=== PATIENT | female | born 1945 | race Caucasian/White ===

== ENCOUNTER 2018-05-25 10:17 | Inpatient (IN) | payer MEDICARE, OTHER ==
[~2018-05-25] VITALS: Ht 157.5 cm; Wt 63.5 kg
[~2018-05-25 10:17] MED LIST: MULT-298 PO; TRAM50TA1 PO
--- NOTE | 2018-05-25 10:18 | NUR ---
PT [facility] BLS TO ER BED 06
[2018-05-25 10:19] VITALS: BP 148/89
--- NOTE | 2018-05-25 10:36 | NUR ---
PATIENT PRESENTS TO ED WITH the chief c/o LEFT ankle pain. PT STATES SHE HAD FALL LAST WEDNESDAY AND PAIN AND SWOLLEN LEFT LEG STARTED SINCE THEN . DENIES N/V/D; SKIN IS PINK/WARM/DRY; AAOX4 WITH EVEN AND STEADY GAIT; LUNGS CLEAR BL; HR EVEN AND REGULAR; PT DENIES ANY FEVER, CP, SOB, OR COUGH AT THIS TIME; PATIENT STATES PAIN OF 9/10 AT THIS TIME; VSS; PATIENT POSITIONED FOR COMFORT; HOB ELEVATED; BEDRAILS UP X2; BED DOWN. ER MD MADE AWARE OF PT STATUS.
--- NOTE | 2018-05-25 11:02 | NUR ---
X -RAY AT BEDSIDE.
[2018-05-25] MEDS ORDERED: oxyCODONE/APAP 5/325 MG 1 TAB TAB PO ONE (11:35)
[2018-05-25] MEDS ORDERED: MORPHINE SULFATE 2 MG/ML SYR IVP PRN (15:25)
[2018-05-25] MEDS ORDERED: HYDROcodone/APAP 5/325 MG 1 TAB TAB PO PRN (15:25)
[2018-05-25] MEDS ORDERED: ONDANSETRON 4 MG/2 ML VIAL IM/IVP PRN (15:25)
[2018-05-25] MEDS ORDERED: ACETAMINOPHEN 325 MG TAB PO PRN (15:25)
[2018-05-25] MEDS ORDERED: LORazepam 2 MG/ML VIAL IM/IVP PRN (15:25)
[2018-05-25] MEDS ORDERED: DOCUSATE SODIUM 100 MG GELCAP PO PRN (15:25)
--- NOTE | 2018-05-25 15:41 | NUR ---
PT DIDNOT VOID SINCE SHE CAME IN. DENIES BLADDER DISCOMFORT. UNABLE TO COLECT UA SAMPLE. PT REFUSED STRAIGHT CATH. DR. MEANS MADE AWARE. SAID ITS OK TO COLECT URINE ON THE FLOOR. DR. MEANS AT BEDSIDE EVALUATING PT. .
--- NOTE | 2018-05-25 16:15 | NUR ---
LABS AT BEDSIDE.
[2018-05-25 16:49] LABS: BASOPHILS # (AUTO) 0.1 K/uL (0.00-0.22); BASOPHILS % (AUTO) 0.9 % (0.0-2.0); EOSINOPHILS # (AUTO) 0.1 K/uL (0-0.4); EOSINOPHILS % (AUTO) 1.2 % (0.0-4.0); HEMATOCRIT 43.9 % (36-48); HEMOGLOBIN 14.6 g/dL (12.0-16.0); LYMPHOCYTES # (AUTO) 2.1 K/uL (2.5-16.5); LYMPHOCYTES % (AUTO) 27.1 % (20.5-51.1); MEAN CORPUSCULAR HEMOGLOBIN 31 pg (27-31); MEAN CORPUSCULAR HGB CONC 33 g/dL (33-37); MEAN CORPUSCULAR VOLUME 91.9 fL (80-94); MONOCYTES # (AUTO) 0.6 K/uL (0.8-1.0); MONOCYTES % (AUTO) 7.3 % (1.7-9.3); NEUTROPHILS # (AUTO) 4.8 K/uL (1.8-7.7); NEUTROPHILS % (AUTO) 63.5 % (42.2-75.2); PLATELET COUNT (AUTO) 190 K/uL (140-450); RED BLOOD CELL COUNT(AUTO) 4.78 MIL/uL (4.20-5.40); RED CELL DISTRIBUTION WIDTH 13.7 % (11.6-13.7); WHITE BLOOD COUNT (AUTO) 7.6 K/uL (4.8-10.8)
[2018-05-25 17:12] LABS: ALBUMIN 3.5 g/dL (3.4-5.0); ANION GAP 7.6 (8-16); ASPARTATE AMINOTRANSFERASE 44 U/L (15-37); CARBON DIOXIDE 27.7 mmol/L (21-32); CHLORIDE 108 mmol/L (98-107); CREATININE 0.7 mg/dL (0.6-1.3); GLUCOSE 113 mg/dL (74-106); POTASSIUM 4.3 mmol/L (3.5-5.1); SODIUM SERUM 139 mmol/L (136-145); TOTAL BILIRUBIN 0.8 mg/dL (0.0-1.0); UREA NITROGEN, BLOOD 18 mg/dL (7-18)
[2018-05-25 17:18] LABS: PROTHROMBIN TIME 10.6 secs (10.8-13.4)
[2018-05-25 17:19] LABS: MAGNESIUM 2.5 mg/dL (1.8-2.4); PHOSPHORUS 3.5 mg/dL (2.5-4.9); THYROID STIMULATING HORMONE 2.06 uIU/mL (0.34-3.74)
[2018-05-25 17:25] VITALS: BP 143/61
--- NOTE | 2018-05-25 17:25 | NUR ---
PATIENT ARRIVED ON MST UNIT FROM ER, SAFELY TRANSFERRED FROM ER BED TO MST BED. NO DISTRESS NOTED. PAIN WITHIN TOLERABLE AT THIS TIME. AAOX3, CALM, COOPERATIVE, SKIN COLOR APPROPRIATE TO ETHNICITY. HAS B/L KNEES ABRASION S/P FALL THAT IS GEOPHYSICAL COMPUTER. B/L FOOT BRUISING NOTED ALSO S/P FALL. B/L ANKLES AND FOOTS +1 PITTING EDEMA. LUNGS CTA ON ALL LOBES. ABDOMEN SOFT NON-DISTENDED. IV SITE INTACT, PATENT, AND INFUSING IVF PER MD ORDERS. ORIENTED PATIENT TO ROOM AND CALL LIGHT. REVIEWED PLAN OF CARE WITH PATIENT. PATIENT VERBALIZED UNDERSTANDING. SAFETY MEASURES IN PLACE, CALL LIGHT WITHIN REACH. WILL CONTINUE TO MONITOR.
--- NOTE | 2018-05-25 17:27 | NUR ---
Patient admitted to [facility] under the care of Dr. Rodríguez. [facility] Belongings list completed. Report to given to BARRY Estrella.
[2018-05-25] MEDS: NACL 0.9% 1,000 ML IV SCH (17:53)
--- NOTE | 2018-05-25 18:45 | NUR ---
US TECH AT BEDSIDE. WILL CONTINUE TO MONITOR.
--- NOTE | 2018-05-25 19:32 | NUR ---
GAVE REPORT TO TRANSFER SPECIALIST NURSE FOR CONTINUITY OF CARE. PATIENT IN STABLE CONDITION.
--- NOTE | 2018-05-25 19:33 | NUR ---
REPORT RECEIVED FROM AM NURSE AT BEDSIDE. PT IN STABLE CONDITION. AAOX4. INTRODUCED SELF. BOARD UPDATED. IV SITE LEFT WRIST 22G RUNNING BS@60ML/HR PATENT AND INTACT. SKIN WARM, DRY, AND NOT INTACT DUE TO BILATERAL ABRASIONS ON THE KNEES AND BILATERAL BRUISING OF LOWER EXTREMITIES. EDEMA ALSO NOTED ON BLE. BED LOCKED IN LOW POSITION. CALL MCCLAIN WITHIN REACH. SAFETY MEASURES IN PLACE.
[2018-05-25 20:20] LABS: BILIRUBIN,URINE NEGATIVE (NEGATIVE); BLOOD, URINE NEGATIVE (NEGATIVE); LEUKOCYTE ESTERASE ,URINE 2+ (NEGATIVE); NITRITE, URINE NEGATIVE (NEGATIVE); PH,URINE 5.5 (5.0-9.0); UGLUCOSE NEGATIVE (NEGATIVE)
[2018-05-25 20:32] LABS: APPEARANCE,URINE CLOUDY (CLEAR); COLOR,URINE AMBER (YELLOW)
[2018-05-25 20:40] LABS: RBC,URINE NONE SEEN /HPF (0-5); WBC,URINE 20-60 /HPF (0-5)
[2018-05-25] MEDS ORDERED: cefTRIAXone 1,000 MG VIAL ONE (23:09)
--- NOTE | 2018-05-25 23:13 | NUR ---
NEW ORDER FOR ROCEPHIN 1G IVPB. HUNG AND RUNNING. PT TOLERATING WELL.
[2018-05-26] VITALS: BP 130/53
--- NOTE | 2018-05-26 01:00 | NUR ---
PT SLEEPING COMFORTABLY. NO S/S OF DISTRESS NOTED. WILL CONTINUE TO MONITOR.
[2018-05-26] MEDS ORDERED: INFLUENZA VIRUS VACCINE QUAD 0.5 ML SYR IMVAC SCH (02:05)
--- NOTE | 2018-05-26 04:30 | NUR ---
PT SLEEPING COMFORTABLY. NO S/S OF DISTRESS NOTED. CHEST EXPANSION VISIBLE. BREATHING WNL, EVEN, AND UNLABORED.
[2018-05-26 06:48] LABS: BASOPHILS % (AUTO) 0.8 % (0.0-2.0); EOSINOPHILS # (AUTO) 0.2 K/uL (0-0.4); EOSINOPHILS % (AUTO) 2.5 % (0.0-4.0); HEMOGLOBIN 13.6 g/dL (12.0-16.0); LYMPHOCYTES # (AUTO) 1.9 K/uL (2.5-16.5); LYMPHOCYTES % (AUTO) 32.9 % (20.5-51.1); MEAN CORPUSCULAR HEMOGLOBIN 30 pg (27-31); MEAN CORPUSCULAR HGB CONC 33 g/dL (33-37); MEAN CORPUSCULAR VOLUME 91.5 fL (80-94); MONOCYTES # (AUTO) 0.4 K/uL (0.8-1.0); MONOCYTES % (AUTO) 6.9 % (1.7-9.3); NEUTROPHILS # (AUTO) 3.4 K/uL (1.8-7.7); NEUTROPHILS % (AUTO) 56.9 % (42.2-75.2); PLATELET COUNT (AUTO) 182 K/uL (140-450); RED BLOOD CELL COUNT(AUTO) 4.48 MIL/uL (4.20-5.40); RED CELL DISTRIBUTION WIDTH 13.3 % (11.6-13.7); WHITE BLOOD COUNT (AUTO) 5.9 K/uL (4.8-10.8)
--- NOTE | 2018-05-26 07:00 | NUR ---
RECEIVED PT REPORT AT BEDSIDE FROM SEMICONDUCTOR BONDER NURSE. PT IS ALERT AND AWAKE, NO S/S OF DISTRESS NOTED AT THIS TIME. IV SITE NOTED ON L WRIST, 22 GAUGE, INFUSING NS AT 60 ML/HR. SLIGHT SWELLING NOTED ON L FOOT. PT IS ON ROOM AIR. BED LOW, CALL LIGHT WITHIN REACH. WILL CONTINUE TO MONITOR.
[2018-05-26 07:02] LABS: CARBON DIOXIDE 24.8 mmol/L (21-32); CHLORIDE 109 mmol/L (98-107); CREATININE 0.6 mg/dL (0.6-1.3); GLUCOSE 97 mg/dL (74-106); POTASSIUM 3.8 mmol/L (3.5-5.1); SODIUM SERUM 138 mmol/L (136-145); UREA NITROGEN, BLOOD 14 mg/dL (7-18)
[2018-05-26 07:05] LABS: MAGNESIUM 2.2 mg/dL (1.8-2.4); PHOSPHORUS 3.4 mg/dL (2.5-4.9)
--- NOTE | 2018-05-26 07:25 | NUR ---
REPORT GIVEN TO AM NURSE AT BEDSIDE. PT IN STABLE CONDITION.
[2018-05-26 07:44] LABS: CHOL/HDL RATIO 3.7 (1-4.5)
[2018-05-26 08:00] VITALS: BP 137/67
--- NOTE | 2018-05-26 08:58 | NUR ---
PATIENT HAS BEEN SCREENED AND CATEGORIZED MODERATE NUTRITION RISK. PATIENT WILL BE SEEN WITHIN 3-5 DAYS OF ADMISSION. 05/28/18 05/30/[address]
[2018-05-26 09:14] LABS: T4 (THYROXINE) 10.5 ug/dL (4.5-12.0)
[2018-05-26] MEDS: LACTOBACILLUS RHAMNOSUS GG 1 EACH CAP PO SCH (09:25)
[2018-05-26] MEDS: NACL 0.9% 1,000 ML IV SCH (09:26)
--- NOTE | 2018-05-26 09:45 | NUR ---
CM NOTE INITIAL REVIEW FAXED TO [facility] [phone] [place] PH# [phone]
--- NOTE | 2018-05-26 13:30 | NUR ---
PT IS SLEEPING CALMLY AT THIS TIME.
[2018-05-26 16:00] VITALS: BP 138/69
--- NOTE | 2018-05-26 17:00 | NUR ---
NEW IV SITE STARTED ON THE RIGHT WRIST, 22 GAUGE.
--- NOTE | 2018-05-26 19:30 | NUR ---
PT REPORT GIVEN AT BEDSIDE TO UNDERWRITING CLERKS SUPERVISOR NURSE. PT ENDORSED IN STABLE CONDITION, NO S/S OF DISTRESS.
--- NOTE | 2018-05-26 19:31 | NUR ---
REPORT RECEIVED FROM AM NURSE AT BEDSIDE. PT IN STABLE CONDITION. AAOX3. INTRODUCED SELF TO PT. BOARD UPDATED. NPO AFTER MIDNIGHT. ORIF SX TOMORROW. IV SITE RIGHT WRIST 22G RUNNING NS@60ML/HR PATENT AND INTACT. SKIN WARM, DRY, AND INTACT WITH NO OPEN WOUNDS. NO COMPLAINTS OF PAIN. NO COMPLAINTS OF SOB. BED LOCKED IN LOW POSITION. CALL MCCLAIN WITHIN REACH. SAFETY MEASURES IN PLACE.
--- NOTE | 2018-05-26 22:42 | NUR ---
NO EKG ORDER BEFORE [facility] KATHLEEN NOTIFIED. ORDER IN. Addendum: 05/26/18 at 2315 by Sukhdev Buitrago RN CXR ORDER ALSO PUT IN.
--- NOTE | 2018-05-26 22:43 | NUR ---
KEYSHA SIMENTAL AND RUNNING. PT TOLERATING WELL.
[2018-05-27] VITALS: BP 137/61
--- NOTE | 2018-05-27 01:30 | NUR ---
PT SLEEPING COMFORTABLY IN BED. NO S/S OF DISTRESS NOTED.
--- NOTE | 2018-05-27 03:10 | NUR ---
PT SLEEPING COMFORTABLY IN BED. NO S/S OF DISTRESS NOTED.
[2018-05-27] MEDS: NACL 0.9% 1,000 ML IV SCH ×2 (04:08→17:25)
--- NOTE | 2018-05-27 05:45 | NUR ---
PT SLEEPING COMFORTABLY. NO S/S OF DISTRESS NOTED. BREATHING EVEN, UNLABORED, AND WNL. NO COMPLAINTS OF PAIN. NO SOB.
[2018-05-27 06:51] LABS: BASOPHILS % (AUTO) 0.8 % (0.0-2.0); EOSINOPHILS # (AUTO) 0.1 K/uL (0-0.4); EOSINOPHILS % (AUTO) 2.7 % (0.0-4.0); HEMATOCRIT 39.8 % (36-48); HEMOGLOBIN 13.2 g/dL (12.0-16.0); LYMPHOCYTES # (AUTO) 2.1 K/uL (2.5-16.5); LYMPHOCYTES % (AUTO) 38.5 % (20.5-51.1); MEAN CORPUSCULAR HEMOGLOBIN 30 pg (27-31); MEAN CORPUSCULAR HGB CONC 33 g/dL (33-37); MEAN CORPUSCULAR VOLUME 91.4 fL (80-94); MONOCYTES # (AUTO) 0.4 K/uL (0.8-1.0); MONOCYTES % (AUTO) 7.2 % (1.7-9.3); NEUTROPHILS # (AUTO) 2.8 K/uL (1.8-7.7); NEUTROPHILS % (AUTO) 50.8 % (42.2-75.2); PLATELET COUNT (AUTO) 194 K/uL (140-450); RED BLOOD CELL COUNT(AUTO) 4.35 MIL/uL (4.20-5.40); RED CELL DISTRIBUTION WIDTH 13.7 % (11.6-13.7); WHITE BLOOD COUNT (AUTO) 5.4 K/uL (4.8-10.8)
--- NOTE | 2018-05-27 07:20 | NUR ---
REPORT GIVEN TO AM NURSE AT BEDSIDE. PT IN STABLE CONDITION.
[2018-05-27 07:22] LABS: CHLORIDE 111 mmol/L (98-107); CREATININE 0.7 mg/dL (0.6-1.3); GLUCOSE 97 mg/dL (74-106); SODIUM SERUM 138 mmol/L (136-145); UREA NITROGEN, BLOOD 11 mg/dL (7-18)
--- NOTE | 2018-05-27 07:25 | NUR ---
RECEIVED PT REPORT AT BEDSIDE FROM LIMNOLOGIST NURSE. PT IS ALERT AND AWAKE, NO S/S OF DISTRESS NOTED AT THIS TIME. IV SITE NOTED ON R WRIST, 22 GAUGE, INFUSING NS AT 60 ML/HR. SLIGHT SWELLING NOTED ON L FOOT. PT IS ON ROOM AIR. BED LOW, CALL LIGHT WITHIN REACH. WILL CONTINUE TO MONITOR.
[2018-05-27 07:26] LABS: MAGNESIUM 2.2 mg/dL (1.8-2.4); PHOSPHORUS 3.4 mg/dL (2.5-4.9)
[2018-05-27 07:34] LABS: ANION GAP 7.3 (8-16); CARBON DIOXIDE 23.7 mmol/L (21-32)
[2018-05-27 08:00] VITALS: BP 128/75
--- NOTE | 2018-05-27 08:45 | NUR ---
PATIENT AMBULATED TO HE BATHROOM WITH ASSIST. PATIENT HAD A BM
[2018-05-27] MEDS: LACTOBACILLUS RHAMNOSUS GG 1 EACH CAP PO SCH (09:09)
--- NOTE | 2018-05-27 09:47 | NUR ---
CM NOTE CONCURRENT REVIEW FAXED TO [facility] [phone] [place] PH# [phone]
--- NOTE | 2018-05-27 13:57 | NUR ---
CM NOTE FAXED ORDER FOR CAM BOOT TO [facility] [phone]. [facility] NEFTALI MORGAN AWARE PH# [phone] AND I GAVE HER THE NUMBER TO THE NURSING STATION WHERE PATIENT IS.
--- NOTE | 2018-05-27 14:00 | NUR ---
PATIENT ASLEEP IN BED. NO S/S OF DISTRESS NOTED
--- NOTE | 2018-05-27 15:00 | NUR ---
CM NOTE RECEIVED CALL FROM [facility] COORDINATOR [place] PH# [phone], FOR CAM BOOT AUTH# [id number] WILL BE DELIVERED BY [employer] INFORMED NEIDA OF [employer] PH# [phone] OF PATIENT'S SHOE SIZE AND SHE ALSO STATED NO ETA AT THIS TIME BUT THEY WILL DELIVER IT BEDSIDE TODAY. ANALISA REDDY AWARE.
[2018-05-27 16:01] VITALS: BP 143/55
[2018-05-27] MEDS ORDERED: IBUP-2213 PO (17:36)
[2018-05-27] MEDS ORDERED: CEPH-1019 PO (18:02)
--- NOTE | 2018-05-27 18:55 | NUR ---
PATIENT DISCHARGED TO HOME. DISCHARGE INSTRUCTIONS AND DISCHARGE PRESCRIPTIONS GIVEN. PATIENT VERBALIZED UNDERSTANDING. IV LINE DISCONTINUED. PATIENT LEFT WITH ALL HER BELONGINGS AND DISCHARGE PAPERS. PATIENT LEFT IN STABLE CONDITION. PATIENT LEFT WITH CAM BOOT
== END 2018-05-27 18:55 | disposition home or self-care (01) | DRG 563 ==
LOC: MED 10:17 → MTU 15:29
PROVIDERS: ADMIT General Practice; ATTEND General Practice
PROC: 3E0234Z Introduction of Serum, Toxoid and Vaccine into Muscle, Percutaneous Approach (ICD-10-PCS; principal; 2018-05-27)
DX: S92.354A Nondisplaced fracture of fifth metatarsal bone, right foot, initial encounter for closed fracture (principal); N39.0 Urinary tract infection, site not specified; F32.2 Major depressive disorder, single episode, severe without psychotic features; J98.11 Atelectasis; M77.32 Calcaneal spur, left foot; E86.0 Dehydration; E66.3 Overweight; F20.9 Schizophrenia, unspecified; K57.90 Diverticulosis of intestine, part unspecified, without perforation or abscess without bleeding; Y93.01 Activity, walking, marching and hiking; H50.9 Unspecified strabismus; E83.41 Hypermagnesemia; M16.12 Unilateral primary osteoarthritis, left hip; M17.12 Unilateral primary osteoarthritis, left knee; W01.0XXA Fall on same level from slipping, tripping and stumbling without subsequent striking against object, initial encounter; Y93.89 Activity, other specified; Z68.25 Body mass index [BMI] 25.0-25.9, adult; Y92.89 Other specified places as the place of occurrence of the external cause; Y99.8 Other external cause status; Z88.5 Allergy status to narcotic agent; Z79.899 Other long term (current) drug therapy; Z90.49 Acquired absence of other specified parts of digestive tract; Z23 Encounter for immunization
CPT/HCPCS: 36415; 71045; 71101; 72170; 73562; 73610; 73630; 73700; 80048; 80053; 81001; 83036; 83690; 83735; 83880; 84100; 84134; 84436; 84443; 84484; 85025; 85610; 85730; 87081; 87086; 90658; 93005; 93925; 93970; 97116; 99285; J0696; J2270; J7030; J7060; Q0092